=== PATIENT | male | born 1995 ===

== ENCOUNTER 2017-02-01 09:37 | Day surgery (SDC) | payer OTHER ==
[~2017-02-01 09:37] MED LIST: Buffered Lidocaine 1% SYRIN* 5 ML/SYR SYRINGE INTRADERM ONE; Dexamethasone IV* 4 MG/ML 1 ML (4 MG) IV SLOW PU ONE; Famotidine IV* 10 MG/ML 2 ML (20 mg) IV ONE
[2017-02-01] MEDS ORDERED: Famotidine IV* 10 MG/ML 2 ML (20 mg) ONE (10:05)
[2017-02-01] MEDS ORDERED: ceFAZolin 2 GM PREMIX(*) 2 GM/50 ML BAG IVPB ONE (10:06)
[2017-02-01] MEDS ORDERED: Dexamethasone IV* 4 MG/ML 1 ML (4 MG) ONE (10:06)
[2017-02-01] MEDS ORDERED: Midazolam* 1 MG/ML 5 ML VIAL (5 MG) ONE (11:52)
[2017-02-01] MEDS ORDERED: fentaNYL* 50 MCG/ML 5 ML VIAL (250 MCG VIAL) ONE (11:52)
[2017-02-01] MEDS ORDERED: Ketorolac INJ* 30 MG/ML 1 ML VIAL ONE (11:52)
[2017-02-01] MEDS ORDERED: Ondansetron INJ* 2 MG/ML VIAL ONE (11:52)
[2017-02-01] MEDS ORDERED: Propofol* 10 MG/ML 20 ML BTL IV PUSH ONE (11:55)
[2017-02-01] MEDS ORDERED: Ondansetron INJ* 2 MG/ML VIAL IV PRN (12:25)
[2017-02-01] MEDS ORDERED: fentaNYL* 50 MCG/ML 2 ML VIAL (100 MCG VIAL) IV PRN (12:25)
[2017-02-01] MEDS ORDERED: oxyCODONE/Acetamin 5/325 MG* TAB PO PRN (12:25)
[2017-02-01] MEDS ORDERED: DiMENhydriNATE IV* 50 MG/ML VIAL IV PUSH PRN (12:25)
[2017-02-01] MEDS ORDERED: Bupivacaine 0.25% SDV* 30 ML ONE (12:46)
[2017-02-01 13:55] VITALS: BP 119/77
--- NOTE | 2017-02-02 19:18 | OP ---
OPERATIVE REPORT: DATE OF OPERATION: 02/01/17 - YURI DATE OF : 89 SURGEON: Vasiliy Menendez MD BILINGUAL TEACHER AIDE: CAMMY Jauregui An fast food sales assistant was needed for the entirety of the case to help with positioning, retraction, and was utilized throughout all portions of the case. ANESTHESIOLOGIST: Dr. Arroyo. ANESTHESIA: General. PRE-OP DIAGNOSIS: Right knee lateral bucket handle meniscus tear. POST-OP DIAGNOSIS: Right knee lateral bucket handle meniscus tear. OPERATIVE PROCEDURE: Right knee arthroscopy with subtotal lateral meniscectomy with lysis of adhesions and partial synovectomy anteriorly. IMPLANTS USED: None. INDICATIONS: Wiley Cartwright is a 22-year-old male who has had several injuries and surgeries on his right knee beginning about 10 years ago with an ACL reconstruction that was done in [place], [facility], then a revision ACL done several years later by Dr. Mir that was also allograft, and then this present injury which is the lateral meniscal bucket handle tear, then underwent repair several years ago. 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 He has had a few episodes of locking since then. He is concerned that he tore his meniscus. He underwent an MRI and presented in my office. After an extensive discussion of the risks and benefits of operative versus nonoperative treatment and repair versus partial meniscectomy, he elected to proceed with operative treatment including possible repair of his re- torn meniscus. After reviewing the risks and benefits of surgery, which included but not limited to bleeding, infection, damage to surrounding vessels, surrounding structures, wound nonhealing, persistent pain, need for further surgery, scarring, risk of anesthesia, risk of DVT, incomplete relief of symptoms, re-tear, he elected to proceed. DESCRIPTION OF PROCEDURE: The patient was greeted in the preoperative area by the attending surgeon. Correct extremity was marked. Consent was confirmed. Patient was then brought back to the operating suite where he was placed in supine on the operating table. He then underwent general anesthesia with LMA intubation, after which the patient had an unsterile tourniquet placed high on the proximal thigh. The knee was examined and found to have 0 to 125 degrees of motion, stable to varus and valgus stress, a 1A Iain, negative posterior drawer. He did have a pivot glide 1+. The lateral post was positioned. The knee was then intra-articularly injected with 0.25% Marcaine with epi. The knee was then prepped and draped in the usual sterile fashion beginning with chlorhexidine soap, scrub, and alcohol wipe with final prep of ChloraPrep. After appropriate surgical pause indicating side, site, and procedure, and administration of antibiotics, the anterolateral portal was made sharply with 11 blade. The scope was introduced to the joint. There was abundant scar anteriorly based, which limited mobilization using the scope. Therefore, the anterior medial portal was made in an outside-in fashion using an 18 gauge needle for localization and the electrocautery device and shaver were then used for performing small lysis of adhesions to allow for mobilization. Once this was done, the scope was placed in the suprapatellar pouch. There were grade 0 to 1 changes of the patellofemoral joint but a small ridge in the center of the trochlea that had grade 2 changes with no unstable flaps. The scope was then positioned in the medial compartment. There were grade 0 to 1 changes and no unstable flaps. The medial meniscus was probed and found to be intact. The scope was placed into the notch. There was evidence of a previous ACL reconstruction that had re-incorporated. This was in a transtibial technique with very superior tunnel. This appeared to be intact with no indication of instability, although it was non-anatomic. At this point, the knee was placed in figure 4 position and the meniscus was identified. This was cut and reduced. The probe was brought in to manipulate, then probe the meniscus and found an unstable displaced posterior tear involving the root encompassing about 50% of the meniscus. There was evidence of previous sutures from the previous fixation, which this had completely torn through. The tear appeared to be in poor quality and in the white-redwhite zone. There was no evidence of any kind of healing and it was somewhat shredded. Nevertheless, an 18-gauge needle was used to test the tissue to make sure that there was no chance of this being able to be reapproximated and held with sutures. Once it was identified that this was poor quality tissue and likely would not hold any sutures, the decision was made to do partial meniscectomy. Therefore with biters and lamar, first the previous sutures were removed x2 and then the partial meniscectomy was done. There was an area of grade 2 fissuring with some grade 3 changes that were stable along the tibial plateau posteriorly along the lateral compartment. Lateral femoral condyle had grade 3 and 1 changes. As much of the meniscus that could be preserved was attempted to preserve but large majority of the posterolateral meniscus was removed. The probe was then used to make sure there was no further unstable flaps. Final images were taken. All fluid and debris was removed from the knee and a thorough lavage was done. The portals were then closed with 3-0 nylon. The knee was intra-articularly injected with 0.25% Marcaine plain. Sterile dressings were applied and a Cryo/Cuff. The patient was awoken from anesthesia and transferred to the PACU in stable condition. POSTOPERATIVE PLAN: He will be weightbearing as tolerated. He will be discharged on pain medication as well as antibiotics because he has had 3 previous surgeries and with slightly increased risk of infection. DVT prophylaxis was deferred due to no previous personal or family history. He declined any pain medication and he will treat this with Tylenol and ibuprofen. He was discharged on Keflex. I will see the patient back in about 10 to 14 days. [id number]/KAISER HAYWARD #: [id number] DOUGIE
== END 2017-02-01 13:50 | disposition home or self-care (01) ==
LOC: OREAST 09:37
PROVIDERS: ATTEND Orthopaedic Surgery
DX: S83.251A Bucket-handle tear of lateral meniscus, current injury, right knee, initial encounter (principal); X50.0XXA Overexertion from strenuous movement or load, initial encounter; Y92.9 Unspecified place or not applicable
CPT/HCPCS: J0690; J1100; J1885; J2250; J2405; J2704; J3010